=== PATIENT | female | born 1955 | race Caucasian/White ===

== ENCOUNTER 2024-01-28 18:08 | Inpatient (IN) | payer MEDICARE ==
[~2024-01-28] VITALS: Ht 170.2 cm; Wt 61.2 kg
[2024-01-28 18:46] LABS: BASOPHILS % (AUTO) 0.4 % (0.0-2.0); EOSINOPHILS # (AUTO) 0.2 K/uL (0.0-0.7); EOSINOPHILS % (AUTO) 2.7 % (0.0-7.0); HEMATOCRIT 41.9 % (31.2-41.9); HEMOGLOBIN 13.8 g/dL (10.9-14.3); LYMPHOCYTES # (AUTO) 2.7 K/uL (0.8-4.8); LYMPHOCYTES % (AUTO) 32.2 % (20.5-51.5); MEAN CORPUSCULAR HEMOGLOBIN 29.6 uug (24.7-32.8); MEAN CORPUSCULAR HGB CONC 33 g/dL (32.3-35.6); MONOCYTES # (AUTO) 0.7 K/uL (0.1-1.30); NEUTROPHILS # (AUTO) 4.7 K/uL (1.8-8.9); NEUTROPHILS % (AUTO) 56.7 % (38.5-71.5); PLATELET COUNT (AUTO) 318 K/uL (179-408); RED BLOOD CELL COUNT(AUTO) 4.65 MIL/uL (3.63-4.92); RED CELL DISTRIBUTION WIDTH 13.3 % (12.3-17.7); WHITE BLOOD COUNT (AUTO) 8.3 K/uL (3.8-11.8)
[2024-01-28 18:47] LABS: DIFFERENTIAL COMMENT 1
[2024-01-28 18:56] LABS: ETHANOL < 3 MG/DL (0-10)
[2024-01-28 18:57] LABS: CALCIUM 9.1 mg/dL (8.5-10.1); CARBON DIOXIDE 27 mmol/L (21-32); CHLORIDE 104 mmol/L (98-107); CREATININE 0.8 mg/dL (0.6-1.3); GLUCOSE 106 mg/dL (74-106); POTASSIUM 4.3 mmol/L (3.5-5.1); SODIUM SERUM 140 mmol/L (136-145); UREA NITROGEN, BLOOD 24 mg/dL (7-18)
[2024-01-28 19:04] LABS: ACETAMINOPHEN < 2.0 ug/mL (10-30); ALANINE AMINOTRANSFERASE 37 U/L (14-59); ALKALINE PHOSPHATASE 62 U/L (50-136); ASPARTATE AMINOTRANSFERASE 28 U/L (15-37); BILIRUBIN,DIRECT 0.1 mg/dL (0.0-0.2); BILIRUBIN,TOTAL 0.3 mg/dL (0.2-1.0); TOTAL PROTEIN, SERUM 7.1 g/dL (6.4-8.2)
[2024-01-28 19:07] LABS: *BILIRUBIN,URIN NEGATIVE (NEGATIVE); *BLOOD, URINE 2+ (NEGATIVE); *CLARITY,URINE CLEAR (CLEAR); *COLOR,URINE YELLOW (YELLOW); *KETONES,URINE NEGATIVE (NEGATIVE); *PROTEIN,URINE NEGATIVE (NEGATIVE); *UROBILINOGEN,URINE 0.2 E.U./dl (NORMAL); LEUKOCYTE ESTERASE ,URINE TRACE (NEGATIVE); NITRITE, URINE NEGATIVE (NEGATIVE); PH,URINE 5.5 (5.0-8.0); UGLUCOSE NEGATIVE (NEGATIVE)
[2024-01-28 19:10] LABS: WBC,URINE 0-3 /HPF (0-3)
[2024-01-28 19:19] LABS: *AMPHETAMINE, URINE NEGATIVE (NEGATIVE); *BARBITURATE, URINE NEGATIVE (NEGATIVE); *BENZODIAZEPINE, URINE NEGATIVE (NEGATIVE); *CANNABINOID, URINE POSITIVE (NEGATIVE); *COCCAINE, URINE NEGATIVE (NEGATIVE); *OPIATE, URINE NEGATIVE (NEGATIVE); *PHENCYCLIDINE SCREEN,URINE NEGATIVE (NEGATIVE); FENTANYL, URINE NEGATIVE (NEGATIVE)
[2024-01-28] MEDS ORDERED: BACL20TA PO (19:19)
[2024-01-28] MEDS ORDERED: CLON1TAB12 PO (19:19)
[2024-01-28] MEDS ORDERED: BUPR-53 PO (19:19)
[2024-01-28] MEDS ORDERED: ALPR1TAB7 PO (19:19)
[2024-01-28] MEDS ORDERED: LAMO150T6 PO (19:19)
[2024-01-28 21:00] VITALS: BP 149/75; TEMP 99.3; O2SAT 99
[2024-01-28] MEDS ORDERED: LORAZEPAM 0.5 MG TABLET PO PRN (21:15)
[2024-01-28] MEDS ORDERED: MAGNESIUM HYDROXIDE 30 ML LIQUID UDC PO PRN (21:15)
[2024-01-28] MEDS ORDERED: MAG HYDROX/AL HYDROX/SIMETH 30 ML LIQUID UDC PO PRN (21:15)
[2024-01-28] MEDS: BLOOD SUGAR DIAGNOSTIC 1 EACH STRIP VI ONE (21:15)
[2024-01-28] MEDS ORDERED: ACETAMINOPHEN 325 MG TABLET PO PRN (21:15)
[2024-01-29] MEDS: TEMAZEPAM 7.5 MG CAPSULE PO PRN (00:29)
[2024-01-29 07:52] VITALS: BP 111/77; TEMP 98.2; O2SAT 96
[2024-01-29 15:13] VITALS: BP 116/62; TEMP 98.2; O2SAT 98
[2024-01-29] MEDS: DIVALPROEX 250 MG TABLET.DR PO SCH (16:43)
[2024-01-29 19:41] VITALS: BP 110/64; TEMP 98.3; O2SAT 98
[2024-01-30 08:53] VITALS: BP 130/69; TEMP 98; O2SAT 99
[2024-01-30] MEDS: REMEDY ESSENTIAL ZINC PASTE 113 GM TOP SCH (11:24)
[2024-01-30] MEDS: OLANZAPINE 2.5 MG TABLET PO SCH (13:58)
[2024-01-30 15:11] VITALS: BP 115/70; TEMP 98; O2SAT 98
[2024-01-30 19:58] VITALS: BP 138/77; TEMP 98.1; O2SAT 98
[2024-01-30] MEDS: BACLOFEN 20 MG TABLET PO SCH (20:47)
[2024-01-31 07:58] VITALS: BP 111/67; TEMP 98; O2SAT 98
[2024-01-31 15:30] VITALS: BP 119/61; TEMP 98; O2SAT 98
[2024-01-31] MEDS: DIVALPROEX 250 MG TABLET.DR PO SCH (16:33)
[2024-01-31 20:00] VITALS: BP 129/65; TEMP 98.3; O2SAT 98
[2024-02-01 07:57] VITALS: BP 138/75; TEMP 98.6; O2SAT 98
[2024-02-01 16:27] VITALS: BP 118/63; TEMP 98.4; O2SAT 98
[2024-02-01 20:30] VITALS: BP 108/62; TEMP 98; O2SAT 91
[2024-02-02 08:20] VITALS: BP 128/66; TEMP 98.1; O2SAT 98
[2024-02-02] MEDS: DIVALPROEX 250 MG TABLET.DR PO SCH (08:21)
[2024-02-02 16:04] VITALS: BP 130/68; TEMP 98; O2SAT 98
[2024-02-02 16:13] VITALS: BP 130/68; TEMP 98; O2SAT 98
[2024-02-02 20:04] VITALS: BP 131/69; TEMP 98.1; O2SAT 96
[2024-02-03 08:03] VITALS: BP 120/68; TEMP 98.2; O2SAT 98
[2024-02-03] MEDS: risperiDONE 0.5 MG TABLET PO SCH (12:30)
[2024-02-03 16:29] VITALS: BP 150/70; TEMP 98.1; O2SAT 98
[2024-02-03 20:53] VITALS: BP 160/93; TEMP 98.4; O2SAT 98
[2024-02-03 21:06] VITALS: BP 144/69; TEMP 99.4; O2SAT 98
[2024-02-04 08:39] VITALS: BP 116/69; TEMP 98; O2SAT 98
[2024-02-04 15:24] VITALS: BP 113/58; TEMP 98; O2SAT 99
[2024-02-04 19:52] VITALS: BP 103/55; TEMP 98.2; O2SAT 98
[2024-02-05 07:52] LABS: BASOPHILS % (AUTO) 0.3 % (0.0-2.0); EOSINOPHILS # (AUTO) 0.2 K/uL (0.0-0.7); EOSINOPHILS % (AUTO) 2.1 % (0.0-7.0); HEMATOCRIT 38.4 % (31.2-41.9); HEMOGLOBIN 12.7 g/dL (10.9-14.3); LYMPHOCYTES # (AUTO) 1.7 K/uL (0.8-4.8); LYMPHOCYTES % (AUTO) 19.2 % (20.5-51.5); MEAN CORPUSCULAR HGB CONC 33 g/dL (32.3-35.6); MEAN CORPUSCULAR VOLUME 90.5 fL (75.5-95.3); MONOCYTES % (AUTO) 11.2 % (0.0-11.0); NEUTROPHILS # (AUTO) 6.1 K/uL (1.8-8.9); NEUTROPHILS % (AUTO) 67.2 % (38.5-71.5); PLATELET COUNT (AUTO) 353 K/uL (179-408); RED BLOOD CELL COUNT(AUTO) 4.24 MIL/uL (3.63-4.92); RED CELL DISTRIBUTION WIDTH 13.3 % (12.3-17.7)
[2024-02-05 07:55] VITALS: BP 108/61; TEMP 98.2; O2SAT 98
[2024-02-05 08:09] LABS: DIFFERENTIAL COMMENT 1
[2024-02-05 08:19] LABS: ALBUMIN 3.3 g/dL (3.4-5.0); BILIRUBIN,TOTAL 0.3 mg/dL (0.2-1.0); CALCIUM 9.1 mg/dL (8.5-10.1); CREATININE 0.8 mg/dL (0.6-1.3); POTASSIUM 4.7 mmol/L (3.5-5.1)
[2024-02-05 15:22] VITALS: BP 112/51; TEMP 98; O2SAT 99
[2024-02-05 19:53] VITALS: BP 101/61; TEMP 98.1; O2SAT 98
[2024-02-06 07:55] VITALS: BP 113/70; TEMP 98; O2SAT 100
[2024-02-06] MEDS: risperiDONE 0.5 MG TABLET PO ONE (13:55)
[2024-02-06 15:33] VITALS: BP 127/61; TEMP 98; O2SAT 100
[2024-02-06 20:16] VITALS: BP 107/54; TEMP 98.2; O2SAT 99
[2024-02-06] MEDS: risperiDONE 1 MG TABLET PO SCH (21:24)
[2024-02-07 07:47] VITALS: BP 108/63; TEMP 98; O2SAT 100
[2024-02-07 08:24] LABS: CALCIUM 9.1 mg/dL (8.5-10.1); CREATININE 0.7 mg/dL (0.6-1.3); POTASSIUM 4.6 mmol/L (3.5-5.1)
[2024-02-07 15:52] VITALS: BP 100/53; TEMP 98; O2SAT 98
[2024-02-07 20:00] VITALS: BP 120/64; TEMP 97.8; O2SAT 99
[2024-02-08 08:08] VITALS: BP 140/70; TEMP 97.9; O2SAT 98
[2024-02-08] MEDS: risperiDONE 1 MG TABLET PO SCH (14:27)
[2024-02-08 16:08] VITALS: BP 103/60; TEMP 98; O2SAT 98
[2024-02-08 20:00] VITALS: BP 117/61; TEMP 98.4; O2SAT 98
[2024-02-09 07:56] VITALS: BP 116/54; TEMP 97.4; O2SAT 98
[2024-02-09 16:53] VITALS: BP 149/69; TEMP 97.9; O2SAT 98
[2024-02-09 20:19] VITALS: BP 130/68; TEMP 98; O2SAT 98
[2024-02-10 08:00] VITALS: BP 120/78; TEMP 98.1; O2SAT 98
[2024-02-10 16:27] VITALS: BP 116/63; TEMP 98; O2SAT 98
[2024-02-10] MEDS: risperiDONE 0.5 MG TABLET PO SCH (16:46)
[2024-02-10 20:00] VITALS: BP 110/66; TEMP 98.2; O2SAT 98
[2024-02-10] MEDS: risperiDONE 2 MG TABLET PO SCH (20:22)
[2024-02-10] MEDS ORDERED: risperiDONE 1 MG TABLET PO SCH (21:00)
[2024-02-11 07:29] LABS: CALCIUM 8.8 mg/dL (8.5-10.1); CREATININE 0.8 mg/dL (0.6-1.3); POTASSIUM 4.3 mmol/L (3.5-5.1)
[2024-02-11 08:02] VITALS: BP 116/71; TEMP 98; O2SAT 99
[2024-02-11 15:26] VITALS: BP 101/65; TEMP 98; O2SAT 99
[2024-02-11 20:00] VITALS: BP 102/61; TEMP 98.9; O2SAT 99
[2024-02-12 07:30] VITALS: BP 97/51; TEMP 98.2; O2SAT 100
[2024-02-12 15:21] VITALS: BP 113/60; TEMP 97.8; O2SAT 100
[2024-02-12 20:00] VITALS: BP 122/77; TEMP 97.9; O2SAT 96
[2024-02-13 07:52] VITALS: BP 104/67; TEMP 98; O2SAT 98
== END 2024-02-13 11:00 | disposition home or self-care (01) | DRG 885 ==
LOC: ER 18:14 → GPS 20:47
PROVIDERS: ADMIT Psychiatry & Neurology Psychosomatic Medicine; ATTEND Nurse Practitioner Acute Care
DX: F31.9 Bipolar disorder, unspecified (principal); E44.1 Mild protein-calorie malnutrition; F10.11 Alcohol abuse, in remission; Z20.822 Contact with and (suspected) exposure to COVID-19; F29 Unspecified psychosis not due to a substance or known physiological condition; Z73.6 Limitation of activities due to disability; Z91.148 Patient's other noncompliance with medication regimen for other reason; G31.84 Mild cognitive impairment of uncertain or unknown etiology; Z68.21 Body mass index [BMI] 21.0-21.9, adult
CPT/HCPCS: 36415; 80164; 85025; G0480; J3490